=== PATIENT | male | born 1995 | race Caucasian/White ===

== ENCOUNTER 2019-11-09 16:28 | Observation (INO) | payer OTHER ==
[~2019-11-09] VITALS: Ht 185.4 cm; Wt 85.5 kg
[2019-11-09 16:56] VITALS: BP 119/64; PULSE 62; TEMP 98.4
--- NOTE | 2019-11-09 17:56 | NUR ---
Pt arrived by EMS, sitting on edge of bed. given med per MAR, denies any pain currently. Pt denies shortness of breath or cough. Pt reports abdominal pain intermittently and bloody loose stools, reports that last BM was at about 1500. no other complaints at this time.
[2019-11-09 19:18] VITALS: BP 115/66; PULSE 59; TEMP 98.5
--- NOTE | 2019-11-09 19:40 | NUR ---
Sitting at bedside with . Assessment complete. Lungs clear. Heart sounds normal. Bowels active x4. Pulses present throughout. No edema noted. IV to right AC infusing without complications. Denies pain. Denies needs at this time. Call light in reach.
[2019-11-09 23:21] VITALS: BP 121/49; PULSE 57; TEMP 98.2
--- NOTE | 2019-11-09 23:33 | NUR ---
Resting in bed. Denies needs/pain. Call light in reach.
--- NOTE | 2019-11-10 02:30 | NUR ---
Resting in bed. Denies needs. Call light in reach.
[2019-11-10 03:24] VITALS: BP 117/63; PULSE 69; TEMP 97.4
--- NOTE | 2019-11-10 05:49 | NUR ---
Patient had uneventful night. Resting in bed this Am. Call light in reach.
[2019-11-10 06:56] LABS: BASO # 0.1 (0.0-0.2); BASO % 0.9 % (0.0-2.0); EOS # 0.2 (0.0-0.7); EOS % 4.3 % (0-4.0); GRAN # 2.5 (1.4-6.5); GRAN % 46.6 % (42.2-75.2); HEMOGLOBIN 13.9 g/dl (13.5-18.0); LYMPH # 1.9 (1.2-3.4); LYMPH % 35.3 % (20.0-51.0); MEAN CELL VOLUME 90 fl (80.0-100.0); MEAN CORPUSCULAR HEMOGLOBIN 31 pg (27.0-31.0); MEAN CORPUSCULAR HGB CONC 35 g/dl (33.0-37.0); MEAN PLATELET VOLUME 10.8 fl (7.4-10.4); MONO # 0.7 (0.1-0.6); MONO % 12.3 % (1.7-9.3); PLATELET COUNT 215 K/mm3 (130-400); RED BLOOD COUNT 4.44 M/mm3 (4.20-5.60); REDCELL DISTRIBUTION WIDTH-CV 12.1 % (11.5-14.5)
[2019-11-10 07:13] LABS: ALBUMIN 3.8 gm/dL (3.5-5.0); BILIRUBIN,TOTAL 0.6 mg/dL (0.0-1.0); CALCIUM 8.9 mg/dL (8.4-10.2); CREATININE, serum 1.18 (0.66-1.25); MAGNESIUM 1.8 mg/dL (1.6-2.3); POTASSIUM 4.1 mmol/L (3.4-5.0)
--- NOTE | 2019-11-10 07:20 | NUR ---
Report given to STEPHEN Ramos
[2019-11-10 07:41] VITALS: BP 111/62; PULSE 66; TEMP 97.8
--- NOTE | 2019-11-10 09:02 | NUR ---
Pt assessment completed and charted. Medications administered per may. Pt sitting in bed watching tv. IVF running to RAC w/o complications. RH slightly puffy. Pt tolerated clear liquid breakfast well. Pt denies pain, dizziness, N/V. Pt states he is still having some diarrhea. Pt on room air, breathing is even and unlabored, LS cta. Pulses strong bilaterally. BS active. No further needs expressed at this time. Call light within reach.
[2019-11-10] MEDS ORDERED: ZITHROMAX500 M2 PO (10:12)
[2019-11-10] MEDS ORDERED: IMODIUM AD1 MG/5 ML PO (10:13)
[2019-11-10] MEDS ORDERED: PROBIOTIC ACID1 EAC3 PO (10:13)
--- NOTE | 2019-11-10 11:38 | NUR ---
Pt discharge instructions discussed and reviewed w/ patient who verbalized understanding, all questions answered. No further needs expressed. RAC IV dc'd w/ catheter tip intact and no complications. Pt escorted out w/ this nurse, ambulatory. No concerns noted.
--- NOTE | 2019-11-10 15:02 | NUR ---
SW met with patient at his bedside to discuss discharge planning. Patient currently resides in [facility] with his bety Leone [phone] as care supportand EMR. Patient reported being independent with ADL's, he does not currently have a DPOA (he declined one at this time)< and he does not use any DME. Pt indicated that his PCP whoever he sees at [facility], and he gets his meidcations at [facility] or [facility] with no concerns. Patient declined any need for HHS at this time.
== END 2019-11-10 11:45 | disposition home or self-care (01) ==
LOC: MEDICAL 16:28
PROVIDERS: ADMIT Internal Medicine
DX: A04.5 Campylobacter enteritis (principal); Z88.2 Allergy status to sulfonamides
CPT/HCPCS: C9113; G0378; J7030